=== PATIENT | male | born 1975 | race Caucasian/White ===

== ENCOUNTER 2018-12-27 06:50 | Emergency (ER) | payer SELFPAY ==
[~2018-12-27] VITALS: Ht 193 cm; Wt 136.1 kg
[2018-12-27] MEDS ORDERED: TRAM50 PO (07:30)
[2018-12-27] MEDS ORDERED: Amoxicillin500 MG PO (07:30)
== END 2018-12-27 07:40 | disposition home or self-care (01) ==
LOC: ER 06:50
DX: K02.9 Dental caries, unspecified (principal); K03.81 Cracked tooth
CPT/HCPCS: 99282

== ENCOUNTER 2019-12-04 06:47 | Emergency (ER) | payer SELFPAY ==
[~2019-12-04] VITALS: Ht 195.6 cm; Wt 136.1 kg
[~2019-12-04 06:47] MED LIST: Amoxicillin500 MG PO; TRAM50 PO
[2019-12-04] MEDS ORDERED: CYCL10 PO (07:30)
== END 2019-12-04 07:54 | disposition home or self-care (01) ==
LOC: ER 06:47
DX: M54.5 Low back pain (principal)
CPT/HCPCS: 96372; 99283-25; J1885